=== PATIENT | male | born 1950 | race Hispanic/Latino ===

== ENCOUNTER 2018-05-06 07:11 | Day surgery (SDC) | payer MEDICARE ==
[2018-05-06] MEDS ORDERED: Liquid Adhesive TOP ONE (09:33)
[2018-05-06] MEDS ORDERED: cefTRIAXone (Rocephin) 1 gm Inj ONE (09:33)
[2018-05-06] MEDS ORDERED: Propofol 10 mg/ml Inj (20 ML) ONE ×2 (10:09→11:23)
[2018-05-06] MEDS ORDERED: Naloxone 0.4 mg/ml Inj (Adult) ONE ×2 (10:52)
[2018-05-06] MEDS ORDERED: HYDROmorphone 0.5 mg/0.5 ml ISec IVP PRN (11:36)
[2018-05-06] MEDS ORDERED: HYDROmorphone 1 mg/ml ISec ONE (11:38)
[2018-05-06] MEDS ORDERED: Lactated Ringer's 1,000 ML IV SCH ×2 (11:45→18:15)
[2018-05-06] MEDS ORDERED: HYDROmorphone 0.5 mg/0.5 ml ISec ONE ×2 (11:51→12:10)
--- NOTE | 2018-05-06 12:23 | OP ---
PROCEDURE DATE: 05/06/2018 PREOPERATIVE DIAGNOSIS: Bladder cancer. POSTOPERATIVE DIAGNOSES: Bladder cancer plus urethral stricture and urethral stenosis. PROCEDURE: A cystoscopy, urethral dilation, insertion of a Mensah catheter, complex. ATTENDING SURGEON: Kain Riddle MD ANESTHESIA: General. SPECIMENS: There were none. DRAIN: A 22-Tunisian wales tip Mensah catheter. COMPLICATIONS: Unable to pass resectoscope. OPERATIVE FINDINGS: After informed consent was obtained, the patient was taken to the operating room, placed on the operating table. Anesthesia was administered. The patient received IV antibiotics. He was placed in the dorsal lithotomy position and prepped and draped in the usual sterile fashion. A 26-Tunisian resectoscope with visualizing obturator was attempted to be placed in the urethral meatus. The meatus was tight. The patient has a history of a known stricture. At this point, urethral sounds were obtained. The meatus was then gently dilated to a size of 26-Tunisian. At this point, the resectoscope with visualizing obturator was able to be placed into the meatus and advanced proximally. In the distal to mid penile urethra, there is a urethral stenosis. The urethra is whitish in color and fibrotic. Multiple attempts were made to pass the scope beyond this point; however, it was unable to be done. At this point, the 26-Tunisian resectoscope was withdrawn. A 21-Tunisian cystoscope was obtained. The cystoscope was able to be passed through this area, although with moderate difficulty. The scope was able to be advanced more proximally. The distal urethra also was somewhat stenotic. The bulbar urethra appeared normal. Prostate moderately enlarged and occlusive appearance. I was able to pass the scope into the bladder. The bladder was then drained and further cystoscopy was performed. There were multiple papillary bladder tumors noted covering the floor of the right wall. Multiple satellite tumors are on the superior posterior wall and the dome. Pictures were taken of the commissary representative tumors. There was some active tumor at the left superior bladder neck as well. At this point, the cystoscope was removed and further attempts were made to pass the resectoscope, again which were unsuccessful. Urethral sounds were then used to attempt to dilate the penile urethra. It was able to be dilated to approximately 24-Tunisian size, but again attempts to pass the resectoscope were unsuccessful. Filiforms and followers were attempted; however, the filiform could not be definitively placed into the bladder, so dilation was not performed. Using a working channel visualizing obturator, a guidewire again was passed through the 21-Tunisian cystoscope, which had been repassed. The wire was coiled in the bladder and the cystoscope was removed. The wire was backloaded onto the resectoscope and again attempts were made to pass the scope through the strictured area over the wire. There was too much pressure needed to pass the scope and there were concerns about further damaging or perforating the urethra and given the undue force needed to pass the scope, further attempts were then abandoned. The resectoscope was then withdrawn. The cystoscope was then repassed. The bladder was drained. There was no active bleeding noted and the wire was then replaced. The cystoscope was withdrawn. A 22-Tunisian wales tip Mensah catheter was able to be passed over the wire and advanced into the bladder. The balloon was then inflated when it was draining and the wire was then removed. The bladder was then copiously irrigated through the Mensah catheter until it was draining clear. At this point, the procedure was completed. The patient was returned to the supine position and taken to the recovery room awake and in stable condition. Plan will be to reschedule the patient and allow some time for soft dilation, possibly change to a 24-Tunisian Mensah catheter in 2 weeks' time. No 24-Tunisian resectoscope is available, but I will request one when the patient is rescheduled or consider performing a perineal urethrostomy with TURBT through the urethrostomy. Kain Riddle MD
[2018-05-07] MEDS ORDERED: Pantoprazole 40 mg EC Tab PO SCH (06:00)
[2018-05-07 06:42] LABS: EOS % 0.5 % (1.5-5.0); GRAN # 3.83 (1.4-6.5); GRAN % 68.3 % (50.0-68.0); HEMOGLOBIN 13.5 g/dL (14.0-18.0); LYMPH # 1.1 (1.2-3.4); LYMPH % 19.1 % (22.0-35.0); MEAN CELL VOLUME 77.7 fl (80.0-105.0); MEAN CORPUSCULAR HEMOGLOBIN 26.4 pg (25.0-35.0); MEAN CORPUSCULAR HGB CONC 33.9 g/dl (31.0-37.0); MONO # 0.7 (0.1-0.6); MONO % 12.1 % (1.0-6.0); PLATELET COUNT 94 10^3/uL (120.0-450.0); RBC 5.12 10^6/uL (3.5-6.1); RED CELL DISTRIBUTION WIDTH 15.1 % (11.5-14.5); WHITE BLOOD COUNT 5.6 10^3/ul (4.5-11.0)
[2018-05-07 07:11] LABS: BLOOD UREA NITROGEN 13 mg/dL (7-21); CALCIUM 8.1 mg/dL (8.4-10.5); GFR NON-AFRICAN AMERICAN > 60
[2018-05-07 09:37] VITALS: BP 150/77; PULSE 70
[2018-05-07 10:19] VITALS: RESP 20; TEMP 98.3; O2SAT 95
--- NOTE | 2018-05-07 14:53 | CON ---
DATE: 05/07/2018 MEDICAL CONSULTATION HISTORY OF PRESENT ILLNESS: The patient is a 67-year-old male who underwent cystoscopy with Dr. Kain Riddle, the urologist, for lysis of urethral strictures as well as evaluation of bladder carcinoma. The patient is known to my office. I have been seeing him for the past several years for hypertension and diabetes. The patient is known to have a past medical history positive for colon carcinoma which was diagnosed in 2015. He had diabetes, [id number] since 2010. He was found to have a bladder tumor in 2014. He is also positive for hepatitis B and hepatitis C. His medications include metformin 500 mg twice a day, lisinopril 10 mg once a day, omeprazole 40 mg once a day, amlodipine 5 mg once a day and iron supplements. He discontinued smoking cigarettes 10 years ago. He drinks only beer socially on weekends. He drinks one cup of coffee a day. He is . He has no known medical allergies. There was some difficulty during his procedure as the scope could not be passed. There was excessive bleeding from the urethra after the procedure and also, blood pressure was markedly elevated. Last night, the patient was treated with a clonidine 0.1 mg several times. When seen today, the patient is sitting up at bedside. The urine in his Mensah catheter has cleared, it is rather orange in color secondary to Pyridium, which he had been receiving. PHYSICAL EXAMINATION: VITAL SIGNS: Stable. He is afebrile at 98.4 degrees Fahrenheit, blood pressure is 137/69, heart rate is 60 beats per minute. DATA: This morning's laboratory show the white blood cell count to be 5.6, hemoglobin and hematocrit are 13.5 and 39.8 respectively. Platelet count is 94. Sodium is 133, potassium is 3.9, chloride 57, carbon dioxide 30, blood urea nitrogen is 13, creatinine is 0.9 and his glucose is 127. At this point, the patient was already evaluated by Dr. Riddle and was cleared for discharge to home. From medical point of view, the patient appears stable. His blood pressure has been stabilized. I agree with discharge to home and the patient will be reevaluated by Dr. Riddle on Thursday to schedule a repeat cystoscopy for his bladder carcinoma and lysis of urethral strictures. We will be evaluating the patient in one to two weeks for blood pressure and diabetes. FINAL DIAGNOSES: 1. Urethral stricture. 2. Bladder carcinoma. 3. Hypertension. 4. [id number] diabetes mellitus. 5. History of colon carcinoma. 6. History of hepatitis B. 7. History of hepatitis C. Cal Piña MD
--- NOTE | 2018-05-07 17:51 | PN ---
DATE: 05/07/2018 POSTOPERATIVE PROGRESS NOTE SUBJECTIVE: The patient is seen in his room. He is postop from a cystoscopy with urethral dilation and Mensah insertion. He is feeling much better now. His urine has grossly cleared. OBJECTIVE: VITAL SIGNS: He is afebrile. Temp of 98.3, pulse 70, BP 150/77, respirations 20. ABDOMEN: Benign. : Phallus shows some mild bruising on the glans penis. Mensah catheter is in place, draining clear colored urine. Scrotum is normal. Testes descended, nontender, no masses. Epididymis are normal. IMPRESSION AND PLAN: The patient can be discharged home on oral antibiotics. He will take Tylenol and AZO as needed for pain. The plan is for the patient to call the office on Thursday or Thursday of next week, and we will give an appointment to come in for a soft dilation in order to be able to facilitate passage of the resectoscope to resect the known bladder tumors. The patient understands and agrees with this plan, and we will place a Mensah to leg bag, and he will be able to be discharged today. Kain Riddle MD
== END 2018-05-07 13:11 | disposition home or self-care (01) ==
LOC: SDS 07:11 → 3RNO 19:19 → SDS 05-07 13:11
PROVIDERS: ATTEND Urology
DX: C67.9 Malignant neoplasm of bladder, unspecified (principal); N35.9 Urethral stricture, unspecified; E11.9 Type 2 diabetes mellitus without complications; I10 Essential (primary) hypertension; N36.8 Other specified disorders of urethra; Z85.038 Personal history of other malignant neoplasm of large intestine; B19.10 Unspecified viral hepatitis B without hepatic coma; B19.20 Unspecified viral hepatitis C without hepatic coma; Z87.891 Personal history of nicotine dependence
CPT/HCPCS: 36415; 51703; 80048; 82948 ×2; 85025; J0696; J1170 ×2; J2310; J2405; J2704; J2765; J3010; J7120 ×3

== ENCOUNTER 2018-06-07 08:14 | Day surgery (SDC) | payer MEDICARE, OTHER ==
[2018-06-07] MEDS ORDERED: Propofol 10 mg/ml Inj (20 ML) ONE (11:24)
[2018-06-07] MEDS ORDERED: cefTRIAXone (Rocephin) 1 gm Inj ONE (11:32)
[2018-06-07] MEDS ORDERED: Iohexol 240 (50 ml) ONE (11:32)
[2018-06-07] MEDS ORDERED: Succinylcholine 200 mg/10 ml Inj IV ONE (11:34)
[2018-06-07] MEDS ORDERED: Labetalol 5 mg/ml Inj 20ML ONE (11:43)
[2018-06-07] MEDS ORDERED: Rocuronium 10 mg/ml (5 ml) ONE (12:03)
[2018-06-07] MEDS ORDERED: Neostigmine Methylsulfate 3mg/3ml Syringe IV ONE (12:34)
[2018-06-07] MEDS ORDERED: Glycopyrrolate 0.2 mg/ml (2ml vial) ONE (12:34)
[2018-06-07] MEDS ORDERED: HYDROmorphone 0.5 mg/0.5 ml ISec IVP PRN (13:02)
[2018-06-07] MEDS: HYDROmorphone 0.5 mg/0.5 ml ISec ONE ×3 (13:05→13:54)
[2018-06-07] MEDS ORDERED: Lactated Ringer's 1,000 ML IV SCH (13:15)
[2018-06-07] MEDS ORDERED: HYDROmorphone 0.5 mg/0.5 ml ISec ONE ×2 (13:17→13:54)
--- NOTE | 2018-06-07 13:41 | OP ---
PROCEDURE DATE: 06/07/2018 PREOPERATIVE DIAGNOSIS: Bladder cancer. POSTOPERATIVE DIAGNOSIS: Bladder cancer. PROCEDURE: A cystoscopy with transurethral resection and fulguration of multiple large bladder tumors. ATTENDING SURGEON: Kain Riddle MD. ANESTHESIA: General. SPECIMENS: Bladder tumor chips was sent to pathology. DRAINS: A 20-Albanian 3-way Mensah catheter. COMPLICATIONS: There were none. OPERATIVE FINDINGS: After informed consent was obtained, the patient was taken to the operating room, placed on the operating table. Anesthesia was administered. The patient was placed in the dorsal lithotomy position and prepped and draped in usual sterile fashion. The patient has a history of a known severe urethral stricture. He has a 22-Albanian Mensah catheter which was left in place after the last attempted resection. Previously, the 26-Albanian scope could not be passed given his severe stricture. Now, we have available a 22-Albanian resectoscope. The 22-Albanian resectoscope with a visualizing was placed in the patient's urethra and advanced proximally under direct vision. There was noted to be a urethral stenosis in the distal penile urethra. The scope was able to be passed beyond this point and advanced under direct vision into the urinary bladder. A full survey inspection of bladder was then performed, which revealed multiple papillary tumors. There was some evidence of catheter reaction on the posterior wall. The largest tumor burden appeared on the right lateral wall extending up to the dome. There were multiple confluent tumors. The entire area of likely malignancy appeared approximately 4 x 5 cm. There was a multitude of small papillary tumors confluent also at the dome. There were some small papillary tumors also located on the posterior wall. Bladder had grade 1-2 trabeculation. There were multiple prior resection sites, which were well-healed. At this point, using the resecting loop, the large tumor burden on the right wall was resected down into the muscular layer. After the large tumor burden was resected, some of the smaller areas of tumor were also resected down into the muscular wall. Any bleeding points encountered were controlled using electrocautery. At this point, decision was made to try pass a 26-Albanian scope in order to irrigate out the tumor chips. At this point, a 26-Albanian scope with visualizing obturator was placed in the patient's urethra. The scope at this time was able to be advanced through the stenosed area and advanced into the bladder. At this point, the bladder was then irrigated, the tumor chips were removed and sent to pathology as specimen. A resecting loop again was passed and further tumors were then cauterized. The loop was then changed to a rollerball electrode. Given the patient's anatomy, very difficult to reach his anterior dome. However, by draining the bladder and running the irrigation very slow with pressure on the pubic area, I was able to use the rollerball electrode to fulgurate completely any visible papillary tumors. The rollerball was also used to fulgurate any surrounding normal mucosa around the areas of tumor, again the base of the prior resection was fulgurated in its entirety along with an area of surrounding normal mucosa. At this point, a final inspection was made. There were no remaining suspicious untreated areas. All the tumor chips had been irrigated out of the bladder and there was good hemostasis. At this point, the bladder was drained. The resectoscope was withdrawn. A 20-Albanian 3-way Mensah catheter was passed and placed to continuous bladder irrigation. The patient tolerated the procedure well, was taken to the recovery room awake and in stable condition. Kain Riddle MD
[2018-06-07 14:38] VITALS: RESP 20; TEMP 97.9; O2SAT 95
[2018-06-07 15:15] VITALS: BP 165/67; PULSE 66
== END 2018-06-07 16:15 | disposition home or self-care (01) ==
LOC: SDS 08:14
PROVIDERS: ATTEND Urology
DX: C67.9 Malignant neoplasm of bladder, unspecified (principal); N30.00 Acute cystitis without hematuria; N30.20 Other chronic cystitis without hematuria; E11.9 Type 2 diabetes mellitus without complications; I10 Essential (primary) hypertension
CPT/HCPCS: 52240; 82948; 88307; J0330; J0696; J1170; J2405; J2704; J2710; J2765; J3010; J7120

== ENCOUNTER 2018-09-06 16:41 | Outpatient (CLI) | payer MEDICARE, OTHER | END 2018-09-06 16:42 | disposition home or self-care (01) | LOC: LAB 16:41 ==

== ENCOUNTER 2018-10-18 06:57 | Day surgery (SDC) | payer MEDICARE, OTHER ==
[2018-10-18] MEDS ORDERED: Iohexol 240 (50 ml) ONE (09:52)
[2018-10-18] MEDS ORDERED: Lidocaine 2% Jelly (Uro-Jet) ONE (09:52)
[2018-10-18] MEDS ORDERED: cefTRIAXone (Rocephin) 1 gm Inj ONE (09:52)
[2018-10-18] MEDS ORDERED: Propofol 10 mg/ml Inj (20 ML) ONE ×2 (10:10→10:31)
[2018-10-18] MEDS ORDERED: Gentamicin 80 mg in 0.9% NS 80 MG/100 ML BAG IVPB ONE (10:13)
[2018-10-18] MEDS ORDERED: Lactated Ringer's 1,000 ML IV SCH (11:15)
[2018-10-18 12:19] VITALS: TEMP 97.4; O2SAT 95
[2018-10-18 13:11] VITALS: BP 168/75; PULSE 64; RESP 18
--- NOTE | 2018-10-21 04:58 | OP ---
PROCEDURE DATE: 10/18/2018 PREOPERATIVE DIAGNOSES: Bladder cancer history and urethral stricture. POSTOPERATIVE DIAGNOSES: Bladder cancer history and urethral stricture. PROCEDURES: Cystoscopy, excision and fulguration of bladder tumor. ATTENDING SURGEON: Kain Riddle MD ANESTHESIA: General. SPECIMENS: Bladder biopsies, sent to Pathology. DRAINS: A 20-Bahamian 3-way Mensah catheter. COMPLICATIONS: There were none. OPERATIVE FINDINGS: After informed consent was obtained, the patient was taken to the operating room, placed on the operating table. Anesthesia was administered. The patient was placed in dorsal lithotomy position and prepped, draped in the usual sterile fashion. The patient received intravenous antibiotics prior to start of the procedure. The patient has an indwelling Mensah catheter in place in order to soft dilate his urethral stricture. The 18-Bahamian Mensah catheter was then removed. A 21-Bahamian cystoscope was placed in the patient's urethra and advanced proximally under direct vision. There was a dense stricture noted in the distal penile urethra; however, it was dilated enough to allow the scope to pass. Remainder of the urethra was within normal limits. Prostate was moderately enlarged with occlusive appearing lateral lobes. The bladder was then entered. A full survey inspection was performed. There were some raised erythematous lesions noted on the posterior wall of the bladder covering an area of approximately 4 x 5 cm. There was a raised patch of erythema on the right lateral wall which appeared about 1 x 2 cm in diameter. There was moderate inflammatory erythema noted throughout the rest of the bladder. Inspection was made with both 30-degree and 70-degree lenses. Both ureteral orifices were visualized and appeared within normal limits. At this point, a cold cup forceps was passed. Multiple pieces of the tumor on the posterior wall were then taken and sent to Pathology as specimen. The patient's bladder was noted to be markedly inflamed. There was bleeding noted from the biopsy/resection site. A Bugbee electrode was then passed, and the sites were then cauterized along with the remainder of the lesion on the posterior wall. After the lesion was completely treated, a margin of normal mucosa was also fulgurated using the Bugbee electrode. When hemostasis was complete, the cold cup forceps again was passed, and a biopsy of the raised erythematous mucosa on the right wall was taken and sent to Pathology separately as specimen. Again, the Bugbee electrode was passed, and the biopsy site was fulgurated along with the area of erythematous mucosa. At this point, there was no remaining suspicious lesion. Hemostasis was good. However given the bladder inflammation, there was some petechial hemorrhaging noted. At this point, the procedure was then completed. The bladder was irrigated to remove any further debris or fragments. The bladder was then drained. The cystoscope was removed. A 20-Bahamian 3-way Mensah catheter was then passed and placed to continuous bladder irrigation. Plan will be for a voiding trial next week. The patient will follow up regarding the pathology and for further surveillance cystoscopies given the diagnosis of recurrent bladder carcinoma. Kain Riddle MD
== END 2018-10-18 16:00 | disposition home or self-care (01) ==
LOC: SDS 06:57
PROVIDERS: ATTEND Urology
DX: N30.00 Acute cystitis without hematuria (principal); N30.20 Other chronic cystitis without hematuria; N35.919 Unspecified urethral stricture, male, unspecified site; I10 Essential (primary) hypertension; Z87.891 Personal history of nicotine dependence; E11.9 Type 2 diabetes mellitus without complications; Z85.51 Personal history of malignant neoplasm of bladder; Z85.038 Personal history of other malignant neoplasm of large intestine; Z90.49 Acquired absence of other specified parts of digestive tract; Z86.19 Personal history of other infectious and parasitic diseases
CPT/HCPCS: 52204; 82948; 88305; J0696; J1580; J2001; J2405; J2704; J3010; J7120 ×2